=== PATIENT | male | born 2005 | race Caucasian/White ===

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

== ENCOUNTER 2024-02-03 14:11 | Outpatient (CLI) | payer OTHER, SELFPAY ==
--- NOTE | ~2024-02-03 | CT_ITS ---
EXAMINATION: CT abdomen pelvis w con DATE: 02/03/2024 14:37 INDICATION: Unspecified abdominal pain TECHNIQUE: Computed tomography (CT) of the abdomen and pelvis was performed with 100 mL Omnipaque-350 intravenous contrast. Automated exposure control and iterative reconstruction technique were employe d. The dose-length product was 402.56 mGy-cm. COMPARISON: None FINDINGS: Lung bases are clear. Heart size is normal. No pericardial or pleural effusion. Liver, gallbladder, s pleen, pancreas, bilateral adrenal glands and kidneys are normal. No bladder is normal. Bowels are un remarkable with no obstruction. No inflammatory stranding surrounding what appears to be a retrocecal appendix. Bones are unremarkable with chronic appearing mild likely physiologic anterior wedging at L1. IMPRESSION: 1. No acute intra-abdominal/pelvic process. Reviewed, dictated and finalized at location A.
== END 2024-02-03 14:12 ==
LOC: MICIMG 14:15
PROVIDERS: PCP Family Medicine; Visit Provider Physician Assistant Medical
DX: R10.9 Unspecified abdominal pain (principal)
CPT/HCPCS: 74177; Q9967